=== PATIENT | female | born 1995 | race Caucasian/White ===

== ENCOUNTER 2021-08-21 15:57 | Outpatient (CLI) | payer MEDICAID, SELFPAY ==
[2021-08-21 16:51] LABS: Absolute Lymphocyte Count 1.82 X10^3/uL (0.83-4.51); Absolute Neutrophil Count 4.5 X10^3/uL (2.0-7.7); Basophil# 0.07 X10^3/uL; Basophil% 0.9 % (0-1); Eosinophil# 0.13 X10^3/uL; Eosinophils% 1.8 % (0-5); Hematocrit 34.1 % (37-47); Hemoglobin 10.2 g/dL (12.0-15.0); Lymphocyte # 1.82 X10^3/ul (0.83-4.51); Lymphocyte % 24.5 % (19-41); Mean Corp Hgb Conc 29.9 g/dL (32-36); Mean Corpuscular Hgb 24.2 pg (27.0-32.0); Mean Platelet Vol. 11.3 fl (6.2-12.0); Monocyte# 0.87 X10^3/uL; Monocyte% 11.7 % (0-10); NRBC Flagged by Analyzer 0 % (0-5); Neutrophil # 4.49 X10^3/uL (2.7-7.7); Neutrophil % 60.6 % (47-70); Platelet Count 369 K/mm3 (150-450); Red Blood Count 4.21 M/mm3 (4.2-5.4); White Blood Count 7.4 K/mm3 (4.4-11.0)
[2021-08-21 17:16] LABS: ALB/GLOB Ratio 0.9 RATIO (0.9-2.4); AST(SGOT) 28 U/L (15-37); Alanine Aminotransfer ALT/SGPT 54 U/L (13-56); Albumin, Serum 3.6 g/dL (3.2-5.0); Alkaline Phosphatase 105 U/L (45-117); Anion Gap 6 (5-15); BUN 9 mg/dL (7-18); BUN/Creat Ratio 12.9 RATIO (10-20); Chloride 108 mmol/L (98-107); Cholesterol 183 mg/dL (200); EST Glomerular Filtration Rate 107 mL/min (>60); Est Glom Filt Rate - Afr Amer 129 mL/min (>60); Globulin 3.9 g/dL (2.2-4.2); Glucose 81 mg/dL (74-106); High Density Lipoprotein 54 mg/dL; Protein, Total 7.5 g/dL (6.4-8.2); Sodium Level 139 mmol/L (136-145); T4 Free Direct 1.23 ng/dL (0.76-1.46); Thyroid Stim Hormone (TSH) 0.01 uIU/mL (0.358-3.74); Triglycerides 163 mg/dL; Very Low Density Lipoprotein 33 mg/dL (5-40)
[2021-08-24 16:04] LABS: Ferritin 4 ng/mL (8-252); Iron 17 ug/dL (50-170); Iron Binding Capacity,Total 479 ug/dL (250-450); PERCENT IRON SATURATION 3.5 % (15.0-55.0)
== END 2021-08-21 23:59 | disposition short-term general hospital (02) ==
LOC: BIMLAB 16:01
PROVIDERS: PCP Nurse Practitioner Family; Referring Provider Nurse Practitioner Family; Visit Provider Nurse Practitioner Family
DX: Z00.00 Encounter for general adult medical examination without abnormal findings (principal); G43.909 Migraine, unspecified, not intractable, without status migrainosus; E03.9 Hypothyroidism, unspecified; D50.9 Iron deficiency anemia, unspecified; F41.9 Anxiety disorder, unspecified
CPT/HCPCS: 36415; 80053; 80061; 82728; 83540; 83550; 84439; 84443; 85025

== ENCOUNTER → 2021-12-04 | Outpatient (CLI) | payer MEDICAID, SELFPAY ==
[2021-12-04 16:49] LABS: Absolute Lymphocyte Count 2.45 X10^3/uL (0.83-4.51); Absolute Neutrophil Count 4.4 X10^3/uL (2.0-7.7); Basophil# 0.11 X10^3/uL; Basophil% 1.4 % (0-1); Eosinophil# 0.12 X10^3/uL; Eosinophils% 1.5 % (0-5); Hematocrit 37.5 % (37-47); Hemoglobin 11.5 g/dL (12.0-15.0); Lymphocyte # 2.45 X10^3/ul (0.83-4.51); Mean Corp Hgb Conc 30.7 g/dL (32-36); Mean Corpuscular Hgb 25.2 pg (27.0-32.0); Mean Corpuscular Volume 82.2 fL (81-99); Mean Platelet Vol. 10.8 fl (6.2-12.0); Monocyte# 0.82 X10^3/uL; Monocyte% 10.4 % (0-10); NRBC Flagged by Analyzer 0 % (0-5); Neutrophil # 4.35 X10^3/uL (2.7-7.7); Neutrophil % 55.1 % (47-70); Platelet Count 360 K/mm3 (150-450); RBC Distribution Width CV 18.6 % (11.6-14.6); RBC Distribution Width SD 55.7 fl (35.1-43.9); Red Blood Count 4.56 M/mm3 (4.2-5.4); White Blood Count 7.9 K/mm3 (4.4-11.0)
[2021-12-04 17:26] LABS: Anion Gap 5 (5-15); BUN 12 mg/dL (7-18); BUN/Creat Ratio 11.9 RATIO (10-20); Calcium,Total 8.5 mg/dL (8.5-10.1); Chloride 104 mmol/L (98-107); Creatinine, Serum 1.01 mg/dL (0.55-1.02); EST Glomerular Filtration Rate 69 mL/min (>60); Est Glom Filt Rate - Afr Amer 84 mL/min (>60); Glucose 85 mg/dL (74-106); Sodium Level 138 mmol/L (136-145); Thyroid Stim Hormone (TSH) 9.92 uIU/mL (0.358-3.74)
== END | disposition home or self-care (01) ==
LOC: BIMLAB 16:09
PROVIDERS: PCP Nurse Practitioner Family; Referring Provider Nurse Practitioner Family; Visit Provider Nurse Practitioner Family
DX: E03.9 Hypothyroidism, unspecified (principal); F41.9 Anxiety disorder, unspecified; G43.909 Migraine, unspecified, not intractable, without status migrainosus
CPT/HCPCS: 36415; 80048; 84443; 85025

== ENCOUNTER → 2022-01-13 | Outpatient (CLI) | payer MEDICAID, SELFPAY ==
[2022-01-13 17:20] LABS: Vitamin B12 368 pg/mL (211-911); Vitamin D,25 Hydroxy 26.7 ng/mL
[2022-01-13 23:24] LABS: Ferritin 17 ng/mL (8-252); Iron 36 ug/dL (50-170); Iron Binding Capacity,Total 414 ug/dL (250-450); PERCENT IRON SATURATION 8.7 % (15.0-55.0); Thyroid Stim Hormone (TSH) 4.99 uIU/mL (0.358-3.74)
[2022-01-14 09:55] LABS: Hematocrit 40.6 % (37-47); Hemoglobin 12.7 g/dL (12.0-15.0); Mean Corp Hgb Conc 31.3 g/dL (32-36); Mean Corpuscular Hgb 27.4 pg (27.0-32.0); Mean Corpuscular Volume 87.7 fL (81-99); Mean Platelet Vol. 11.8 fl (6.2-12.0); Platelet Count 322 K/mm3 (150-450); RBC Distribution Width CV 15.3 % (11.6-14.6); RBC Distribution Width SD 48.6 fl (35.1-43.9); Red Blood Count 4.63 M/mm3 (4.2-5.4)
== END | disposition home or self-care (01) ==
LOC: BIMLAB 16:18
PROVIDERS: PCP Nurse Practitioner Family; Referring Provider Nurse Practitioner Family; Visit Provider Nurse Practitioner Family
DX: D64.9 Anemia, unspecified (principal); F32.A Depression, unspecified; G43.909 Migraine, unspecified, not intractable, without status migrainosus; E03.9 Hypothyroidism, unspecified; F41.9 Anxiety disorder, unspecified; E56.9 Vitamin deficiency, unspecified
CPT/HCPCS: 36415; 82306; 82607; 82728; 83540; 83550; 84443; 85027

== ENCOUNTER → 2022-05-25 | Outpatient (CLI) | payer MEDICAID, SELFPAY ==
[2022-05-25 15:53] LABS: Thyroid Stim Hormone (TSH) 3.91 uIU/mL (0.358-3.74)
== END | disposition home or self-care (01) ==
LOC: BIMLAB 13:03
PROVIDERS: Physician Assistant; PCP Nurse Practitioner Family; Visit Provider Nurse Practitioner Family
DX: E03.9 Hypothyroidism, unspecified (principal)
CPT/HCPCS: 36415; 84443

== ENCOUNTER 2022-06-02 08:00 | Outpatient (RCR) | payer MEDICAID, SELFPAY ==
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
[2022-06-02 11:57] VITALS: BP 116/85; PULSE 62
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
--- NOTE | 2022-06-02 13:02 | BH.DR.ITP ---
Initial Treatment Plan Patient Information Visit Information: ADMISSION DATE: EXPECTED LOS: 4-6 weeks Problems/Symptoms Problem #1:: Mood instability Symptom:: Sadness, hopelessness, worthlessness, guilt, passive thoughts of , fleeting, passive suicidal ideation, anhedonia, low motivation, Problem #2:: Anxiety Symptom:: Worry, rumination, panic attacks, avoidance
--- NOTE | 2022-06-04 09:10 | BH.SGPN.GN ---
Behaviors/Verbalizations/Mental Status: [] Eye contact is poor. Motor activity is appropriate. Appearance is casual. Speech is Appropriate. Mood is depressed. Affect is flat. Thoughts are linear and logical. No evidence of psychosis. Reviewed daily check in sheet and no reports of suicidal ideations or intent. Client Response/Progress/Benefit: [] Pt participated at times during the group discussions. Attentive. Daily symptom tracker noted 2/5 for anxiety, depression,and irritability;ity which is improvement from earlier in the week. Mental health wins included feeling less irritable and more connected with her family. Shared struggles with connection due in large part to Depression. Daily tasks and responsibilities are reported to be easier with mood improvement. Increased energy and improved communication this week as well. I'm also feeling good healthwise She could not identify any skills or significant changes that she has utilized to cause these changes. Benefited from group support, encouragement, and feedback. Will continue in group to prevent decompensation, maintain safety, and increase healthy coping. Narrative Note: []
--- NOTE | 2022-06-04 10:08 | BH.SGPN.GN ---
Behaviors/Verbalizations/Mental Status: []Pt alert and oriented, casually dressed and appropriately groomed. Eye contact good. Motor activity appropriate. Speech within normal limits. Affect constricted, mood depressed and anxious. Thoughts linear, logical, no signs of hallucinations or delusions. Client Response/Progress/Benefit: []Pt was an engaged participant AEB listening to others, and taking notes. Did well to remain on topic. Participated in interactive group discussion on internal and external barriers to mental health progress. Pt described current reality as feeling stuck in between two mountains with her supports on the other side where she cannot reach them. Reported desired reality is no longer being trapped and being able to use her own skills to scale the mountain herself while also seeing her supports are available when needing them. Client shared personal barriers to desired realty include: deconstruction of fidel, negative self-talk, and lack of support. Benefited from increased awareness of current barriers to progress as well as current/desired realities. Pt will continue IOP tx to reduce anxiety and improve self-esteem, increase consistent use of healthy coping, and prevent decompensation. Narrative Note: []
--- NOTE | 2022-06-04 11:10 | BH.SGPN.GN ---
Behaviors/Verbalizations/Mental Status: []Pt alert and oriented, neatly dressed and groomed. Eye contact good. Motor activity appropriate. Speech within normal limits. Affect constricted, mood dysthymic. Thoughts linear, logical, no signs of hallucinations or delusions. Client Response/Progress/Benefit: []Pt engaged during activity, encouraging peers, and contributed as group brainstormed ideas on how to cope with internal barriers that keep pts stuck from moving towards goals. Able to identify barriers to desired reality. Identified barriers to current reality to include lack of self-confidence, and needing confirmation bias from supports, and poor boundaries. Pt wants to work on overcoming the barrier of poor boundaries by reducing how much she is on social media and reducing what she shares. Benefited from group by identifying obstacles and solutions to desired reality.? Pt will continue IOP tx to prevent decompensation, improve daily functioning, and increase healthy coping skills. ? Narrative Note: []
--- NOTE | 2022-06-07 14:17 | BH.MDN ---
Multi-Disciplinary Note - Note 45-min Individual Time Started:: 12:00 Date: 06/07/22 Purpose of session/treatment goals addressed:: Purpose session was to identify current symptoms and stressors, gather background information, and identify treatment goals. Eye Contact:: Fair Motor Activity:: Appropriate Appearance:: Casual Speech:: Appropriate Mood:: Anxious, Depressed Affect:: Constricted Thoughts:: Linear, Logical, No evidence of hallucinations/delusions noted Staff Interventions:: psychoeducation on: - Cognitive triangle And behavioral activation, CBT techniques, rapport building, strengths perspective, treatment planning Client Response:: Client shared she moved to [place] little over a year ago which has been a significant change in impacting her mental health. Client stated they moved here when she was 7 months . Client reported since being with her they have moved 3 of different times which added stress each time the move. Client stated they chose to move here because they wanted to be closer to support but since being here realizes it has not really helped with support. Client reported her 's brother lives less than 30 minutes away but they do not really see them very often. Client reported her depression has been at the forefront. Client stated her depression is impacting her ability to function in her home. Reported she feels like her is doing more around the house that he should since she does not work right now. Client stated she struggles with taking the kids outside the house because of her anxiety. Client reported no motivation, apathy, anhedonia, and no energy. Client reported her mood fluctuates within the same day in which she will feel motivated and improved energy in a couple hours and will go back to feeling depressed and not wanting to do anything. Client stated while she is in IOP she would like to learn how to manage her anger more effectively, when how to get out of her head with racing thoughts and negative thought patterns. In discussion about self care, reported she does not feel like she has things that she enjoys anymore. 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 Risks/Concerns:: Client reports passive thoughts of , denies active suicidal ideation, plan, or intent. Client feels able to maintain safety. Progress Toward Goals/Plan:: No progress observed to given client just started IOP. Client struggling with depressed symptoms, anxious symptoms, and home functioning is significantly impacted due to her mental health. 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 Also client's mental health has kept her from attempting to socialize and meet new friends. Client to continue IOP to improve daily functioning, increase healthy coping skills, and prevent decompensation. Time Stopped:: 12:45
--- NOTE | 2022-06-11 09:10 | BH.SGPN.GN ---
Behaviors/Verbalizations/Mental Status: [] Eye contact is good. Motor activity is appropriate. Appearance is casual. Speech is Appropriate. Mood is depressed. Affect is congruent. Thoughts are linear and logical. No evidence of psychosis. Reviewed daily check in sheet and pt reports 1/5 for suicidal thoughts and 0/5 for intent. Client Response/Progress/Benefit: [] Pt participated at times during group discussions. She was very helpful feedback to peer struggling with body image issues. ?Attentive during video and discussion on education on CBT. Daily symptom tracker notes 3/5 for depression and anger. SI-1. Mental health win was that she made it to group today. States ?I was a mess all week?. Reports significant stress which is mainly related to caring for her children. ?Life is stressful?. She chooses not to elaborate on her struggles any further. Group was supportive and empathetic which was beneficial. Will continue in IOP to prevent decompensation, maintain safety, and increase healthy coping skills. Narrative Note: []
--- NOTE | 2022-06-11 10:15 | BH.SGPN.GN ---
Behaviors/Verbalizations/Mental Status: [] Client alert and oriented, casually dressed and groomed. Eye contact good. Motor activity appropriate. Speech within normal limits. Affect congruent, mood euthymic. Thoughts linear, logical, no signs of hallucinations or delusions. Client Response/Progress/Benefit: [] Client was an active participant AEB contributing to discussion, taking notes, and engaging in group activity. Connected with the topic of pitfalls and listened to group discussion on barriers that prevent from choosing a healthier path to mental wellness. Group worked together to identify examples of personal pitfalls which included; anger, shutting down, drug use, unhealthy coping, denial, distortions, and self sabotage. Client identified all or nothing thinking as a personal pitfall that have inhibited progress in the past. Client benefited from group as client learned to better identify potential barriers to improving mental health symptoms. Client will continue IOP tx to increase self-care, gain healthy support, and improve daily functioning. Narrative Note: []
--- NOTE | 2022-06-11 11:15 | BH.SGPN.GN ---
Behaviors/Verbalizations/Mental Status: [] Client alert and oriented, casually dressed and groomed. Eye contact good. Motor activity appropriate. Speech within normal limits. Affect congruent, mood euthymic. Thoughts linear, logical, no signs of hallucinations or delusions. Client Response/Progress/Benefit: [] Client receptive of session, engaged throughout AEB client actively listening and at times contributing to discussion as well as taking notes. Client participated in the experiential activity and did well to communicate ideas with peers and manage emotions. Client attentive as group processed how the emotions and perspective of the group impacted the activity. Group worked together to identify different coping skills to help manage pitfalls. Client identified pitfall they struggle with is all or nothing thinking. Client plans to work on this pitfall by setting attainable goals with not setting herself up for failure. Benefited from identifying personal pitfalls and strategies to overcome these pitfalls. Will continue IOP tx to increase self worth, combat negative thinking patterns, and increase the use of healthy coping skills. Narrative Note: []
--- NOTE | 2022-06-16 10:10 | BH.SGPN.GN ---
Behaviors/Verbalizations/Mental Status: [] Eye contact is good. Motor activity is appropriate. Appearance is casual. Speech is Appropriate. Mood is anxious. Affect is congruent. Thoughts are linear and logical. No evidence of psychosis. Client Response/Progress/Benefit: [] Pt participated at times during the group discussions and activities. Attentive during psychoeducation. Participated during interactive group discussions on defining stress, benefits of stress, and how they respond when feeling overwhelmed with stress. Pt identified main stressors in life as going to the store, her mental health, kids, family, relationship, and /loss. When her jar is overflowing it leads to taking naps, checking out, and isolating. Benefited from increased understanding of stressors and how they can impact mental health. Will continue in IOP to maintain safety, prevent decompensation, and increase healthy coping. Narrative Note: []
--- NOTE | 2022-06-16 11:10 | BH.SGPN.GN ---
Behaviors/Verbalizations/Mental Status: []Pt alert and oriented, neatly dressed and groomed. Eye contact good. Motor activity appropriate. Speech within normal limits. Affect constricted, mood anxious. Thoughts linear, logical, no signs of hallucinations or delusions. Client Response/Progress/Benefit: []Pt participated at times during group discussions. Attentive during psychoeducation. Participated in experiential activity in which group members had to utilize stress management skills in the moment. Pt agreed with peers that their cooperation and communication was a helpful resource and pt worked well with peers to problem-solve the stressors presented. Pt engaged in review of the 4 A?s and picked wanting to work on adapting her expectations for herself. Pt shared she often sets unrealistic goals and then ?shoulds? on herself when she does not reach these. Benefited from processing in the moment stress management strategies and identifying new ways to cope with stress. Will continue in IOP tx to prevent decompensation, reduce negative thinking patterns, and improve overall functioning. ? Narrative Note: []
--- NOTE | 2022-06-16 11:47 | PCM.BH.PN ---
Progress Note Progress Note: History of Present Illness/Interim History: The patient is a 26-year-old female who has depression, anxiety, possible bipolar disorder and hypothyroidism who is seen in follow-up at the [facility] behavioral health IOP program. I last saw the patient over 1 month ago as the patient has some attendance issues secondary to lack of childcare availability. Patient at times struggles to engage in the groups and the program. The patient states that the groups make her anxious sometimes because her prior job was very stressful and the patient's reminder of her clients and her prior job. The patient at last visit did not wish to have any medication changes but did agree to try taking her Lexapro 10 mg consistently as she was not taking it much before. She states that she has taken it every day since her last visit and she feels more stable and somewhat less depressed. She still has occasional hopelessness but it is less intense and less often than before. She still has some trouble taking care of her children and doing her activities of daily living. She is not having any crying episodes anymore. She has minimal times where she has feelings of worthlessness. She feels she is learning some skills that will help her to manage her mental health issues. Patient is still somewhat anhedonic and not enjoying much that she does except occasional moments being with her children. She still has low energy level and is a worrier and ruminates negatively. She admits to occasional passive thoughts of but less than a few times a week now.. She denies any suicidal ideation, homicidal ideation, hallucinations, delusions or symptoms of sweta. She still has considerable financial stress and they are still considering moving back to [place] to be closer to support and babysitting they can trust in case the patient returns to work later. Current Psychiatric Medications: [] Lexapro 10 mg p.o. daily (taking it consistently for 6 weeks now) Mental Status Examination: [] The patient is an obese female who appears normal for stated age and is casually dressed and groomed with good hygiene. She is ambulatory with a normal gait and has no psychomotor agitation or retardation. Eye contact is good and speech is normal rate and rhythm and fluent with no pressure. Mood is depressed. Affect is constricted. Thought process is goal-directed and organized. Thought content there is evidence of occasional passive thoughts of . There is no evidence of suicidal ideation, plan for suicide, homicidal ideation, hallucinations, delusions or symptoms of sweta. Reality testing is intact. Intelligence is average. Judgment is intact. Insight is fair and improving. Diagnoses: [] 1. Rule out bipolar 2 disorder 2. Major depressive disorder, recurrent, severe without psychosis 3. Generalized anxiety disorder 4. Recently diagnosed hypothyroidism and thyroid medication change which could affect mood instability 5. Cluster B traits 6. Primary support, housing and financial issues Plan: [] The patient will continue the IOP program at [facility] as the structure, support, education and group therapy will hopefully prevent worsening of the patient's symptoms which could require hospitalization. The patient felt safe during the interview and if it anytime she does not feel safe she will let us know or go to the emergency room. The risks, options, possible complications and side effects of the medications were discussed with the patient and she understands and accepts these. The patient still refuses any increase in medication dose or adding any medications. She does not want any more weight gain and she wants to wait several months till she feels her thyroid disorder has stabilized on the new dose of medication. Patient will continue to follow-up with her outpatient private providers and I will see the patient in follow-up while she is in the IOP program.
== END 2022-06-30 23:59 ==
LOC: BHIOP 08:00
PROVIDERS: PCP Nurse Practitioner Family; Referring Provider Psychiatry & Neurology Psychiatry; Visit Provider Psychiatry & Neurology Psychiatry
DX: F33.2 Major depressive disorder, recurrent severe without psychotic features (principal); F41.1 Generalized anxiety disorder; E03.9 Hypothyroidism, unspecified; Z79.899 Other long term (current) drug therapy
CPT/HCPCS: 90792; 99213; H2020; S9480; 90834

== ENCOUNTER → 2022-12-01 | Outpatient (CLI) | payer MEDICAID, SELFPAY ==
[2022-12-01 16:45] LABS: Mucous, Urine 0 SEEN /hpf (<or=2+); Squamous Epithelial Cells - UA 0 SEEN /hpf (5-10)
[2022-12-01 17:11] LABS: Color, Urine Yellow (Yellow); Glucose, Dipstick Normal (Normal); Ketone-Dipstick Negative (Negative); Leukocyte Esterase-Dipstick 500 /ul (Negative); Nitrite-Dipstick Negative (Negative); Occult Blood-Urine 25 /ul (Negative); Protein-Dipstick Negative (Negative); Urine Bilirubin Dipstick Negative (Negative); Urine Clarity Clear (Clear); Urine Urobilinogen Normal (Normal)
[2022-12-01 17:24] LABS: White Blood Cells 10-25 SEEN /hpf (0-5)
[2022-12-01 17:25] LABS: Bacteria RARE /hpf (None Seen); Red Blood Cells-Urine 0-5 SEEN /hpf (0-5)
== END | disposition home or self-care (01) ==
PROVIDERS: PCP Nurse Practitioner Family; Referring Provider Physician Assistant; Visit Provider Physician Assistant
DX: R30.0 Dysuria (principal)
CPT/HCPCS: 81001; 87086; 87088

== ENCOUNTER → 2022-12-14 | Outpatient (CLI) | payer MEDICAID, SELFPAY ==
[2022-12-14 10:46] LABS: Bacteria 0 SEEN /hpf (None Seen); Mucous, Urine 0 SEEN /hpf (<or=2+); Red Blood Cells-Urine 0 SEEN /hpf (0-5); White Blood Cells 0 SEEN /hpf (0-5)
[2022-12-14 11:09] LABS: Color, Urine Yellow (Yellow); Glucose, Dipstick Normal (Normal); Ketone-Dipstick 15 mg/dl (Negative); Leukocyte Esterase-Dipstick Negative /ul (Negative); Nitrite-Dipstick Negative (Negative); Occult Blood-Urine Negative /ul (Negative); Protein-Dipstick Negative (Negative); Urine Bilirubin Dipstick Negative (Negative); Urine Clarity Clear (Clear); Urine Urobilinogen Normal (Normal)
[2022-12-14 11:48] LABS: Squamous Epithelial Cells - UA 0-5 SEEN /hpf (5-10)
== END | disposition home or self-care (01) ==
LOC: LABSPEC 10:39
PROVIDERS: PCP Nurse Practitioner Family; Referring Provider Physician Assistant Surgical; Visit Provider Physician Assistant Surgical
DX: R30.0 Dysuria (principal)
CPT/HCPCS: 81001; 87086; 87088

== ENCOUNTER → 2022-12-29 | Outpatient (CLI) | payer MEDICAID, SELFPAY ==
[2022-12-29 16:50] LABS: Absolute Lymphocyte Count 1.88 X10^3/uL (0.83-4.51); Absolute Neutrophil Count 3.4 X10^3/uL (2.0-7.7); Basophil# 0.07 X10^3/uL; Basophil% 1.2 % (0-1); Eosinophil# 0.12 X10^3/uL; Hematocrit 39.3 % (37-47); Hemoglobin 12.7 g/dL (12.0-15.0); Lymphocyte # 1.88 X10^3/ul (0.83-4.51); Mean Corp Hgb Conc 32.3 g/dL (32-36); Mean Corpuscular Hgb 28.8 pg (27.0-32.0); Mean Corpuscular Volume 89.1 fL (81-99); Mean Platelet Vol. 11.9 fl (6.2-12.0); Monocyte# 0.57 X10^3/uL; Monocyte% 9.4 % (0-10); NRBC Flagged by Analyzer 0 % (0-5); Neutrophil # 3.41 X10^3/uL (2.7-7.7); Neutrophil % 56.1 % (47-70); Platelet Count 282 K/mm3 (150-450); RBC Distribution Width CV 13.1 % (11.6-14.6); RBC Distribution Width SD 42.8 fl (35.1-43.9); Red Blood Count 4.41 M/mm3 (4.2-5.4); White Blood Count 6.1 K/mm3 (4.4-11.0)
[2022-12-29 17:16] LABS: Vitamin B12 517 pg/mL (211-911); Vitamin D,25 Hydroxy 58.2 ng/mL
[2022-12-29 17:22] LABS: ALB/GLOB Ratio 1.1 RATIO (0.9-2.4); AST(SGOT) 20 U/L (15-37); Alanine Aminotransfer ALT/SGPT 39 U/L (13-56); Albumin, Serum 3.9 g/dL (3.2-5.0); Alkaline Phosphatase 84 U/L (45-117); Anion Gap 8 (5-15); BUN 9 mg/dL (7-18); BUN/Creat Ratio 12.5 RATIO (10-20); Calcium,Total 8.9 mg/dL (8.5-10.1); Chloride 109 mmol/L (98-107); Creatinine, Serum 0.72 mg/dL (0.55-1.02); EST Glomerular Filtration Rate 102 mL/min (>60); Est Glom Filt Rate - Afr Amer 123 mL/min (>60); Ferritin 60 ng/mL (8-252); Globulin 3.4 g/dL (2.2-4.2); Glucose 86 mg/dL (74-106); Iron 50 ug/dL (50-170); Iron Binding Capacity,Total 285 ug/dL (250-450); PERCENT IRON SATURATION 17.5 % (15.0-55.0); Potassium 3.8 mmol/L (3.5-5.1); Protein, Total 7.3 g/dL (6.4-8.2); Sodium Level 140 mmol/L (136-145); Thyroid Stim Hormone (TSH) 2.51 uIU/mL (0.358-3.74)
== END | disposition home or self-care (01) ==
LOC: BIMLAB 15:32
PROVIDERS: PCP Nurse Practitioner Family; Visit Provider Nurse Practitioner Family
DX: E03.9 Hypothyroidism, unspecified (principal); F41.9 Anxiety disorder, unspecified; F32.A Depression, unspecified; D50.9 Iron deficiency anemia, unspecified; E56.9 Vitamin deficiency, unspecified
CPT/HCPCS: 36415; 80053; 82306; 82607; 82728; 83540; 83550; 84443; 85025

== ENCOUNTER → 2023-03-22 | Outpatient (CLI) | payer MEDICAID, SELFPAY ==
[2023-03-28 16:50] LABS: HPV Reflexed? NOT INDICATED
== END | disposition home or self-care (01) ==
LOC: LABSPEC 16:10
PROVIDERS: PCP Nurse Practitioner Family; Referring Provider Nurse Practitioner Women's Health; Visit Provider Nurse Practitioner Women's Health
DX: Z12.4 Encounter for screening for malignant neoplasm of cervix (principal)
CPT/HCPCS: 87070; 87205; 88175; G0145

== ENCOUNTER 2023-04-11 15:18 | Emergency (ER) | payer MEDICAID, SELFPAY ==
[2023-04-11 15:19] VITALS: BP 117/69; PULSE 95; RESP 18; TEMP 35.9; O2SAT 100; BMI 28.9
--- NOTE | 2023-04-11 16:44 | EDS_ITS ---
HPI History of Present Illness Chief Complaint: Abd Pain Informant: patient Onset/Context/Timing Onset: Today Narrative Narrative: Patient presents secondary to epigastric abdominal pain that radiated through to her back. Patient had gastric sleeve surgery performed in September of this year in [place]. Patient states she had a migraine earlier today. When her sumatriptan did not help, she did take 2 tabs of Excedrin. She states she knows that she is not was to take aspirin after her gastric sleeve surgery. Shortly after this she developed severe epigastric pain rating through to her back. She had nausea but no vomiting. After taking some omeprazole symptoms have improved, however she wanted to be checked to be sure everything was okay. She does have an IUD and does not believe she is . [facility] Medical History Anemia Generalized anxiety disorder History of depression Hypothyroidism Major depressive disorder, recurrent, severe w/o psychotic behavior Skin lesion Thyroid disease Urinary tract infection with hematuria Vitamin deficiency Home Medications copper 380 square mm intrauterine device (ParaGard T 380A) 1 device intrauterine ONCE 12/16/21 [History Last Taken Unknown] multivitamin (One Daily Multivitamin tablet) 1 tab PO DAILY 12/01/22 [History Last Taken Unknown] sumatriptan succinate 100 mg tablet See Rx Instructions PO .COMPLEX #14 tabs 01/18/23 [Rx Last Taken Unknown] magnesium oxide 500 mg capsule 500 mg PO DAILY 03/22/23 [History Last Taken Unknown] Allergy/AdvReac Type Severity Reaction Status Date / Time No Known Allergies Allergy Verified 04/11/23 15:20 Family History Other Cancer Hypertension Melanoma Surgical History H/O gastric sleeve S/P appendectomy Social History household members: spouse and children number of children: 2 current occupation: [employer] pets and animals: Yes (2) pets and animals: cat(s) Smoking Status: Never smoker alcohol intake: current alcohol intake frequency: holidays/special occasions only substance use type: does not use what type of physical activity do you participate in: walking and weight training frequency: 3-4 times per week seatbelt use: always do you feel safe at home: Yes additional social history: - Jose E ROS ROS ED Constitutional Constitutional ED: Denies chills or fever(s) Eyes Eyes: Denies discharge from eye(s) ENT ENT ED: Denies discharge from eye(s), rhinorrhea or sore throat Cardiovascular Cardiovascular: Denies chest pain or palpitations Respiratory/Chest Respiratory/Chest: Denies cough or dyspnea Gastrointestinal Gastrointestinal: Reports abdominal pain and nausea; Denies diarrhea or vomiting Musculoskeletal Musculoskeletal: Denies back pain or extremity pain Integumentary Denies Abrasions or rash Neurologic Neurologic: Reports headache(s); Denies weakness Psychiatric Psychiatric: Denies anxiety or depression Allergic/Immunologic Allergic/Immunologic ED: Denies lip swelling or urticaria EXAM Physical Exam Const Vital Signs: 04/11/23 15:19 Temperature 96.6 F L Temperature Source Temporal Pulse Rate 95 Respiratory Rate 18 Blood Pressure 117/69 Blood Pressure Mean 85 Pulse Ox 100 Oxygen Delivery Method Room Air Positive well nourished and well developed General Appearance ED: well developed HEENT Reports normocephalic and head/scalp atraumatic Eyes PERRL and EOMs intact bilaterally Neck supple Chest Wall inspection of chest normal and palpation of chest normal Resp normal respiratory effort and clear to auscultation bilaterally Cardio regular rate and regular rhythm GI GI Narrative: Mild epigastric tenderness. No guarding or rebound. Hypoactive but present bowel sounds are noted. Palpation: soft Extremity normal to inspection Neuro oriented x3 and no sensory deficits noted Sensorium / Orientation: alert Motor Exam: strength 5/5 throughout Psych mental status grossly normal Skin no rashes or lesions noted MDM MDM MDM Narrative Medical decision making narrative: IV line established. Patient given IV fluids. Labwork obtained to evaluate for leukocytosis, anemia, and electrolyte derangement. Acute abdominal series obtained to evaluate bowel gas pattern for possible obstruction versus perforation. Lab Data Attestation: I reviewed the patient's lab results. Labs: Laboratory Results - last 24 hr 04/11/23 17:10 WBC 9.4 RBC 4.83 Hgb 13.9 Hct 43.5 MCV 90.1 MCH 28.8 MCHC 32.0 RDW Std Deviation 41.9 RDW Coeff of Luis Fernando 12.7 Plt Count 308 MPV 11.0 Immature Gran % (Auto) 0.600 Neut % (Auto) 74.8 H Lymph % (Auto) 16.9 L [place] % (Auto) 6.7 Eos % (Auto) 0.4 Baso % (Auto) 0.6 Absolute Neuts (auto) 7.1 Absolute Lymphs (auto) 1.60 Nucleated RBC % 0 Sodium 142 Potassium 3.7 Chloride 107 Carbon Dioxide 27.0 Anion Gap 8 BUN 10 Creatinine 0.80 Estim Creat Clear Calc 82.06 Est GFR (MDRD) Af Amer 108 Est GFR (MDRD) Non-Af 89 BUN/Creatinine Ratio 12.4 Glucose 83 Calcium 9.0 Total Bilirubin 0.20 Direct Bilirubin 0.10 AST 46 H ALT 27 Alkaline Phosphatase 83 Total Protein 7.5 Albumin 3.8 Globulin 3.7 Lipase 21 Serum , Qual NEGATIVE Radiography Diagnostic Testing: Clinical Impression(s) from Imaging Studies Acute Abdomen Series 04/11/23 17:15 IMPRESSION: No acute cardiopulmonary disease. Nonspecific gas pattern with no signs of bowel obstruction or free air. Electronically Signed: Tanna Crowe MD at 17:33 EDT , Treatment and Re-Evaluation :: Acute abdominal series per my interpretation feels no evidence of obstruction or free air. Radiology interpretation is reviewed and agrees. CBC is unremarkable. Chemistry studies are normal as well as LFTs and lipase. test is negative. On repeat evaluation patient is resting comfortably. She is reassured with her findings. She will be discharged home. Discharge Plan Triage Chief Complaint: Abd Pain ED Provider: Johanna Carmona Dx/Rx/DC Orders Clinical Impression: Acute epigastric pain Instructions: ED Epigastric Pain Uncertain Cause Prescriptions: No Action ParaGard T 380A 380 square mm intrauterine device 1 device intrauterine ONCE Rx Instructions: as a single dose multivitamin [One Daily Multivitamin] Tablet 1 tab PO DAILY magnesium oxide 500 mg capsule 500 mg PO DAILY sumatriptan succinate 100 mg tablet See Rx Instructions PO .COMPLEX Qty: 14 1RF Rx Instructions: take 1 tab at onset of headache; if no relief, may repeat 1 tab after at least 2 hrs; max = 2 tabs/24 hrs PO Primary Care Provider: Antoni Schneider NP Referrals: Antoni Schneider MULTIPLEX OPERATOR, MULTIPLEX OPERATOR-C [Primary Care Provider] - As Needed Disposition Disposition: Home, Self Care
[2023-04-11] MEDS: 0.9% Normal Saline (1000mL) 1,000 ML 150 ML IV (17:11)
--- NOTE | 2023-04-11 17:15 | RAD_ITS ---
STUDY: X-RAY - ACUTE ABDOMINAL SERIES REASON FOR EXAM: Female, 27 years old. pain TECHNIQUE: Single view of the chest. Supine, and erect view(s) of the abdomen were obtained. COMPARISON: None. FINDINGS: The lungs are clear and expanded. Normal size heart. Normal mediastinum and stuart. Normal visualized pulmonary arteries. Normal visualized aortic arch and descending thoracic aorta. There is a non-specific bowel gas pattern. Postoperative changes with sutures and clips along the left upper quadrant. There is an IUD in place. Mild scoliosis of the lumbar spine with convexity to the left. Mild scoliosis of the thoracic spine with convexity to the right. RAD/Acute Abdomen Inc Chest IMPRESSION: No acute cardiopulmonary disease. Nonspecific gas pattern with no signs of bowel obstruction or free air. Electronically Signed: Tanna Crowe MD at 17:33 EDT ,
[2023-04-11 17:43] LABS: Absolute Neutrophil Count 7.1 X10^3/uL (2.0-7.7); Basophil# 0.06 X10^3/uL; Basophil% 0.6 % (0-1); Eosinophil# 0.04 X10^3/uL; Eosinophils% 0.4 % (0-5); Hematocrit 43.5 % (37-47); Hemoglobin 13.9 g/dL (12.0-15.0); Lymphocyte % 16.9 % (19-41); Mean Corpuscular Hgb 28.8 pg (27.0-32.0); Mean Corpuscular Volume 90.1 fL (81-99); Monocyte# 0.63 X10^3/uL; Monocyte% 6.7 % (0-10); NRBC Flagged by Analyzer 0 % (0-5); Neutrophil # 7.05 X10^3/uL (2.7-7.7); Neutrophil % 74.8 % (47-70); Platelet Count 308 K/mm3 (150-450); RBC Distribution Width CV 12.7 % (11.6-14.6); RBC Distribution Width SD 41.9 fl (35.1-43.9); Red Blood Count 4.83 M/mm3 (4.2-5.4); White Blood Count 9.4 K/mm3 (4.4-11.0)
[2023-04-11 18:00] VITALS: RESP 16
[2023-04-11 18:00] LABS: Internal QC Validated? YES +Cl - CLEAR BKGD; Pregnancy, Serum, hCG Quali. NEGATIVE Negative
[2023-04-11 18:08] LABS: AST(SGOT) 46 U/L (15-37); Alanine Aminotransfer ALT/SGPT 27 U/L (13-56); Albumin, Serum 3.8 g/dL (3.2-5.0); Alkaline Phosphatase 83 U/L (45-117); Anion Gap 8 (5-15); BUN 10 mg/dL (7-18); BUN/Creat Ratio 12.4 RATIO (10-20); Chloride 107 mmol/L (98-107); EST Glomerular Filtration Rate 89 mL/min (>60); Est Glom Filt Rate - Afr Amer 108 mL/min (>60); Estimated Creatinine Clearance 82.06 ml/min; Globulin 3.7 g/dL (2.2-4.2); Glucose 83 mg/dL (74-106); Lipase 21 U/L (13-75); Potassium 3.7 mmol/L (3.5-5.1); Protein, Total 7.5 g/dL (6.4-8.2); Sodium Level 142 mmol/L (136-145)
== END 2023-04-11 18:21 | disposition home or self-care (01) ==
PROVIDERS: Emergency Provider Emergency Medicine; PCP Nurse Practitioner Family; Visit Provider Emergency Medicine
DX: R10.13 Epigastric pain (principal)
CPT/HCPCS: 74022; 80048; 80076; 83690; 84703; 85025; 96360; 96361; 99283; J7030; A4216

== ENCOUNTER 2023-05-26 15:09 | Emergency (ER) | payer MEDICAID, SELFPAY ==
[2023-05-26 15:12] VITALS: BP 116/80; PULSE 92; RESP 18; TEMP 35.9; O2SAT 98; BMI 26.5
--- NOTE | 2023-05-26 15:23 | ED.VIS.GI ---
HPI HPI - GI History of Present Illness Chief Complaint: Abd Pain Narrative Narrative: 27-year-old female past medical history of gastric surgery/sleeve placement in [place] 6 to 7 months ago presents with epigastric pain that she has had for the last few weeks to month. She states that she is being seen by her primary care provider, Dr. Schneider. She was placed on Carafate and Protonix for suspected ulcer disease. She does state that she is under a lot of stress recently. She complains of epigastric pain and nausea, and sometimes gets diarrhea. She denies any fevers or chills. No hematemesis, no bloody bowel movements. She states that she wants to make sure that everything is okay. No exacerbating or alleviating factors. She states she has been on the Carafate and Protonix for the last week or so with improvement of her symptoms, and is unsure if she is having anxiety attacks over this. PFSH PFSH Medical History Anemia Generalized anxiety disorder History of depression Hypothyroidism Major depressive disorder, recurrent, severe w/o psychotic behavior Skin lesion Thyroid disease Urinary tract infection with hematuria Vitamin deficiency Home Medications copper 380 square mm intrauterine device (ParaGard T 380A) 1 device intrauterine ONCE 12/16/21 [History Last Taken Unknown] multivitamin (One Daily Multivitamin tablet) 1 tab PO DAILY 12/01/22 [History Last Taken Unknown] sumatriptan succinate 100 mg tablet See Rx Instructions PO .COMPLEX #14 tabs 01/18/23 [Rx Last Taken Unknown] magnesium oxide 500 mg capsule 500 mg PO DAILY 03/22/23 [History Last Taken Unknown] Allergy/AdvReac Type Severity Reaction Status Date / Time No Known Allergies Allergy Verified 05/26/23 15:12 Family History Other Cancer Hypertension Melanoma Surgical History H/O gastric sleeve S/P appendectomy Social History household members: spouse and children number of children: 2 current occupation: [employer] pets and animals: Yes (2) pets and animals: cat(s) Smoking Status: Never smoker alcohol intake: current alcohol intake frequency: holidays/special occasions only substance use type: does not use what type of physical activity do you participate in: walking and weight training frequency: 3-4 times per week seatbelt use: always do you feel safe at home: Yes additional social history: - Jose E ROS ROS ED ROS Narrative Constitutional: No fever, no chills. HEENT: No sore throat. No neck pain. No loss of vision. No rhinorrhea. Cardiovascular: No chest pain. No palpitations. No pedal edema. Respiratory: No cough, no shortness of breath. Abdominal: Epigastric abdominal pain. Positive nausea. No vomiting. Genitourinary: No dysuria. No hematuria. Musculoskeletal: No myalgias. No arthralgias. Neurologic: No headaches. No dizziness. No lightheadedness. Skin: No rash. No change in color. Psychiatric: No depression. No anxiety. EXAM Physical Exam Narrative Exam Narrative: Afebrile. Vital signs noted. HEENT: Normocephalic. Atraumatic. PERRL, EOMI. Neck soft and supple. No point tenderness or step off. Cardiovascular: Regular rate and rhythm. No murmurs, rubs, or gallops appreciated. Respiratory: No tachypnea. Lungs clear to auscultation bilaterally. Gastrointestinal: Abdomen soft, mild tenderness to palpation epigastrium with normoactive bowel sounds. No rebound or guarding. Negative Wright sign. Neurological: Awake. Alert. Nonfocal, nonlateralizing. Skin: No rash. Normal color. No pallor. Musculoskeletal: No pedal edema. Full range of motion extremities. Const Vital Signs: 05/26/23 15:12 05/26/23 15:45 Temperature 96.7 F L Temperature Source Temporal Pulse Rate 92 Respiratory Rate 18 Respiratory Effort Normal Non-Labored Blood Pressure 116/80 Blood Pressure Mean 92 Pulse Ox 98 Oxygen Delivery Method Room Air MDM MDM MDM Narrative Medical decision making narrative: I had a lengthy discussion with the patient. In the differential is gastritis versus peptic ulcer disease. She has a gastric sleeve in place, not a Sylvain-en-Y. She was told that she will most likely need follow-up with gastroenterology to perform endoscopy. In the differential diagnosis also would be pancreatitis versus nonspecific abdominal pain, versus anxiety. She does have a nonsurgical abdomen on examination. X-rays will be obtained of the abdomen after negative test. I will also obtain a UA, CBC, and CMP, with lipase. I reviewed her laboratory work from today and she has slightly elevated white count of 11.2 which I think is nonspecific, hemoglobin normal at 12.6, hematocrit normal at 39.0, platelet count 293. CMP was reviewed and she has a glucose normal at 93 with BUN of 11 and creatinine 0.69. Sodium is normal at 141 with potassium slightly low at 3.3 which was replaced orally with 40 mEq. Serum test is negative. Urinalysis is negative for infection, I do not feel that with a negative microanalysis that she requires antibiotics at this time. Acute abdominal series and 3 views, x-rays interpreted by myself independently shows nonspecific gas pattern and no evidence of an acute process, no free air under the diaphragm. I have low suspicion for perforated ulcer. At this point in time, she is already on Carafate and Maximo acid. I feel she can be discharged to follow-up with her primary care physician and she was also referred to gastroenterology. There may be some anxiety component to this as well. She has normal vital signs, however. I feel she be discharged to follow-up. Return instructions were reviewed. Disposition is discharged home in stable condition. History & Record Review Discussion w/independent historian: Patient Additional record(s) reviewed:: Prior ED visit Lab Data Attestation: I reviewed the patient's lab results. Labs: Laboratory Results - last 24 hr 05/26/23 05/26/23 15:30 16:00 WBC 11.2 H RBC 4.48 Hgb 12.6 Hct 39.0 MCV 87.1 MCH 28.1 MCHC 32.3 RDW Std Deviation 40.2 RDW Coeff of Luis Fernando 12.7 Plt Count 293 MPV 10.7 Immature Gran % (Auto) 0.700 Neut % (Auto) 76.5 H Lymph % (Auto) 13.7 L [place] % (Auto) 8.0 Eos % (Auto) 0.4 Baso % (Auto) 0.7 Absolute Neuts (auto) 8.6 H Absolute Lymphs (auto) 1.53 Nucleated RBC % 0 Sodium 141 Potassium 3.3 L Chloride 108 H Carbon Dioxide 26.0 Anion Gap 7 BUN 11 Creatinine 0.69 Estim Creat Clear Calc 95.15 Est GFR (MDRD) Af Amer 130 Est GFR (MDRD) Non-Af 107 BUN/Creatinine Ratio 16.0 Glucose 93 Calcium 9.0 Total Bilirubin 0.40 AST 6 L ALT 18 Alkaline Phosphatase 75 Total Protein 7.4 Albumin 3.6 Globulin 3.8 Albumin/Globulin Ratio 0.9 Lipase 21 Serum , Qual NEGATIVE Urine Color Yellow Urine Clarity Clear Urine pH 7.0 Ur Specific Rankin 1.005 Urine Protein Negative Urine Glucose (UA) Normal Urine Ketones 5 H Urine Occult Blood Negative Urine Nitrite Negative Urine Bilirubin Negative Urine Urobilinogen Normal Ur Leukocyte Esterase 25 H Urine RBC 0 SEEN Urine WBC 0-5 SEEN Ur Squamous Epith Cells 0-5 SEEN Urine Bacteria 0 SEEN Urine Mucus 0 SEEN Radiography Diagnostic Testing: Clinical Impression(s) from Imaging Studies Acute Abdomen Series 05/26/23 15:40 IMPRESSION: Nonspecific examination of the chest, abdomen, and pelvis status post gastric surgery. Electronically Signed: Brenton Tong MD at 16:28 EDT Reading Location ID and State: [facility] / [place] Tel , Service support , Discharge Plan Triage Chief Complaint: Abd Pain Other Complaint: Anxiety Chest Pain ED Provider: German Vanegas Dx/Rx/DC Orders Clinical Impression: Epigastric abdominal pain, Gastroesophageal reflux disease, Hypokalemia Instructions: ED Abdominal Pain Unkn Cause Fem, ED GERD (Adult), ED Epigastric Pain Uncertain Cause Prescriptions: No Action ParaGard T 380A 380 square mm intrauterine device 1 device intrauterine ONCE Rx Instructions: as a single dose multivitamin [One Daily Multivitamin] Tablet 1 tab PO DAILY magnesium oxide 500 mg capsule 500 mg PO DAILY sumatriptan succinate 100 mg tablet See Rx Instructions PO .COMPLEX Qty: 14 1RF Rx Instructions: take 1 tab at onset of headache; if no relief, may repeat 1 tab after at least 2 hrs; max = 2 tabs/24 hrs PO Primary Care Provider: Antoni Schneider NP Referrals: Kam Celis DO [Med Staff - Active Staff] - As soon as possible Antoni Schneider NP, POOLROOM TABLE ATTENDANT-C [Primary Care Provider] - As soon as possible Disposition Disposition: Home, Self Care
[2023-05-26] MEDS: 0.9% Normal Saline (1000mL) 1,000 ML 1000 ML IV (15:38)
--- NOTE | 2023-05-26 15:40 | RAD_ITS ---
STUDY: X-RAY - ACUTE ABDOMINAL SERIES REASON FOR EXAM: Female, 27 years old. Pain TECHNIQUE: Single view of the chest. Supine, and upright view(s) of the abdomen were obtained. COMPARISON: None. FINDINGS: The lungs are clear and expanded. There is mild dextroscoliosis deformity of the thoracic spine Normal size heart. Normal mediastinum and stuart. Normal visualized pulmonary arteries. Normal visualized aortic arch and descending thoracic aorta. There is a non-specific bowel gas pattern. IUD noted within the pelvis in the midline likely within the uterus Surgical clips are seen within the left upper quadrant. Lumbar spine demonstrates mild scoliosis.. RAD/Acute Abdomen Inc Chest IMPRESSION: Nonspecific examination of the chest, abdomen, and pelvis status post gastric surgery. Electronically Signed: Brenton Tong MD at 16:28 EDT ,
[2023-05-26 15:57] LABS: Absolute Lymphocyte Count 1.53 X10^3/uL (0.83-4.51); Absolute Neutrophil Count 8.6 X10^3/uL (2.0-7.7); Basophil# 0.08 X10^3/uL; Basophil% 0.7 % (0-1); Eosinophil# 0.04 X10^3/uL; Eosinophils% 0.4 % (0-5); Hemoglobin 12.6 g/dL (12.0-15.0); Lymphocyte # 1.53 X10^3/ul (0.83-4.51); Lymphocyte % 13.7 % (19-41); Mean Corp Hgb Conc 32.3 g/dL (32-36); Mean Corpuscular Hgb 28.1 pg (27.0-32.0); Mean Corpuscular Volume 87.1 fL (81-99); Mean Platelet Vol. 10.7 fl (6.2-12.0); NRBC Flagged by Analyzer 0 % (0-5); Neutrophil # 8.56 X10^3/uL (2.7-7.7); Neutrophil % 76.5 % (47-70); Platelet Count 293 K/mm3 (150-450); RBC Distribution Width CV 12.7 % (11.6-14.6); RBC Distribution Width SD 40.2 fl (35.1-43.9); Red Blood Count 4.48 M/mm3 (4.2-5.4); White Blood Count 11.2 K/mm3 (4.4-11.0)
[2023-05-26 16:08] LABS: Bacteria 0 SEEN /hpf (None Seen); Mucous, Urine 0 SEEN /hpf (<or=2+); Red Blood Cells-Urine 0 SEEN /hpf (0-5)
[2023-05-26 16:16] LABS: Color, Urine Yellow (Yellow); Glucose, Dipstick Normal (Normal); Ketone-Dipstick 5 mg/dl (Negative); Leukocyte Esterase-Dipstick 25 /ul (Negative); Nitrite-Dipstick Negative (Negative); Occult Blood-Urine Negative /ul (Negative); Protein-Dipstick Negative (Negative); Specific Gravity, Urine 1.005 (1.002-1.030); Urine Bilirubin Dipstick Negative (Negative); Urine Clarity Clear (Clear); Urine Urobilinogen Normal (Normal)
[2023-05-26 16:21] LABS: Internal QC Validated? YES +Cl - CLEAR BKGD; Pregnancy, Serum, hCG Quali. NEGATIVE Negative
[2023-05-26 16:25] LABS: ALB/GLOB Ratio 0.9 RATIO (0.9-2.4); AST(SGOT) 6 U/L (15-37); Alanine Aminotransfer ALT/SGPT 18 U/L (13-56); Albumin, Serum 3.6 g/dL (3.2-5.0); Alkaline Phosphatase 75 U/L (45-117); Anion Gap 7 (5-15); BUN 11 mg/dL (7-18); Chloride 108 mmol/L (98-107); Creatinine, Serum 0.69 mg/dL (0.55-1.02); EST Glomerular Filtration Rate 107 mL/min (>60); Est Glom Filt Rate - Afr Amer 130 mL/min (>60); Estimated Creatinine Clearance 95.15 ml/min; Globulin 3.8 g/dL (2.2-4.2); Glucose 93 mg/dL (74-106); Lipase 21 U/L (13-75); Potassium 3.3 mmol/L (3.5-5.1); Protein, Total 7.4 g/dL (6.4-8.2); Sodium Level 141 mmol/L (136-145)
[2023-05-26 16:28] LABS: Squamous Epithelial Cells - UA 0-5 SEEN /hpf (5-10); White Blood Cells 0-5 SEEN /hpf (0-5)
[2023-05-26] MEDS: Potassium Chloride Oral Tablet 20 MEQ 40 MEQ PO (16:37)
== END 2023-05-26 16:41 | disposition home or self-care (01) ==
PROVIDERS: Emergency Provider Emergency Medicine; PCP Nurse Practitioner Family; Visit Provider Emergency Medicine
DX: K21.9 Gastro-esophageal reflux disease without esophagitis (principal); E87.6 Hypokalemia; Z98.84 Bariatric surgery status; Z90.49 Acquired absence of other specified parts of digestive tract
CPT/HCPCS: 74022; 80053; 81001; 83690; 84703; 85025; 96360; 99284; J7030; A4216

== ENCOUNTER 2023-05-27 09:06 | Emergency (ER) | payer MEDICAID, SELFPAY ==
[2023-05-27 09:06] VITALS: BP 118/78; PULSE 64; RESP 14; TEMP 36.4; O2SAT 98; BMI 26.6
--- NOTE | 2023-05-27 09:13 | EX.ED.VIS.PS ---
HPI HPI - Psych History of Present Illness Chief Complaint: Anxiety Informant: patient Onset/Context/Timing Onset: Yesterday Context: Gradual Onset Timing: Continuous Worsened by: Situational factors (Abdominal pain) Relieved by: Nothing Associated Symptoms Associated Symptoms - Psych: Positive for Depressed, Change in Eating, Change in sleeping and Suicidal Thoughts; Negative for Visual Hallucinations or Auditory Hallucinations Specific plan (suicidal thought): No specific plan Narrative Narrative: Patient presents with increasing anxiety that began yesterday. Patient states she was seen here yesterday for abdominal pain. Patient states that she had a gastric sleeve surgery several months ago. Patient states she has been having some pain in her abdomen since that time. Patient states she is on Carafate. Patient states that she has been unable to see a food preparer for this. Patient states that the epigastric pain is making her anxiety worse. Patient states she has had thoughts of suicide but denies any specific plan. Patient states I just cannot live like this. PFSH PFS Medical History Anemia Generalized anxiety disorder History of depression Hypothyroidism Major depressive disorder, recurrent, severe w/o psychotic behavior Skin lesion Thyroid disease Urinary tract infection with hematuria Vitamin deficiency Home Medications copper 380 square mm intrauterine device (ParaGard T 380A) 1 device intrauterine ONCE 12/16/21 [History Last Taken Unknown] multivitamin (One Daily Multivitamin tablet) 1 tab PO DAILY 12/01/22 [History Last Taken Unknown] sumatriptan succinate 100 mg tablet See Rx Instructions PO .COMPLEX #14 tabs 01/18/23 [Rx Last Taken Unknown] magnesium oxide 500 mg capsule 500 mg PO DAILY 03/22/23 [History Last Taken Unknown] hydroxyzine pamoate 25 mg capsule 50 mg (2 x 25 mg) PO TID PRN PRN Anxiety #30 CAPSULES 05/27/23 [Rx Last Taken Unknown] Allergy/AdvReac Type Severity Reaction Status Date / Time No Known Allergies Allergy Verified 05/27/23 09:06 Family History Other Cancer Hypertension Melanoma Surgical History H/O gastric sleeve S/P appendectomy Social History household members: spouse and children number of children: 2 current occupation: [employer] pets and animals: Yes (2) pets and animals: cat(s) Smoking Status: Never smoker alcohol intake: current alcohol intake frequency: holidays/special occasions only substance use type: does not use what type of physical activity do you participate in: walking and weight training frequency: 3-4 times per week seatbelt use: always do you feel safe at home: Yes additional social history: - Jose E ROS ROS ED Constitutional Constitutional ED: Denies chills or fever(s) Eyes Eyes: Denies blurry vision or change in vision ENT ENT ED: Denies rhinorrhea or sore throat Cardiovascular Cardiovascular: Reports chest pain; Denies palpitations Respiratory/Chest Respiratory/Chest: Denies cough or dyspnea Gastrointestinal Gastrointestinal: Reports abdominal pain and nausea; Denies vomiting Genitourinary Genitourinary ED: Denies dysuria or hematuria Musculoskeletal Musculoskeletal: Denies back pain or neck pain Integumentary Denies abscess or rash Neurologic Neurologic: Denies headache(s) or weakness Psychiatric Psychiatric: Reports anxiety and suicidal thoughts Allergic/Immunologic Allergic/Immunologic ED: Denies mouth swelling or urticaria EXAM Physical Exam Const Vital Signs: 05/27/23 09:06 Temperature 97.6 F L Temperature Source Temporal Pulse Rate 64 Respiratory Rate 14 Blood Pressure 118/78 Blood Pressure Mean 91 Pulse Ox 98 Oxygen Delivery Method Room Air Positive well nourished and well developed General Appearance ED: well developed and NAD HEENT Reports moist mucous membranes normocephalic and atraumatic Neck supple and no JVD Resp normal respiratory effort and clear to auscultation bilaterally Cardio Rate: regular rate Rhythm: regular rhythm GI non-distended GI Narrative: There is mild upper abdominal tenderness. There is no rebound or guarding noted. Palpation: soft and tender epigastric, LUQ and RUQ; Negative for guarding Neuro oriented x3, CN's II-XII intact bilaterally and no sensory deficits noted Roselle Coma Scale: document GCS findings Spontaneous Obeys Commands Oriented 15 Sensorium / Orientation: alert Motor Exam: strength 5/5 throughout Psych Appearance: grossly normal and well kempt Activity / Motor Behavior: avoids eye contact Speech: normal speech Mood & Affect: anxious and tearful Thought Process: normal thought process Thought Content: No delusion(s) and No hallucination(s) MDM MDM MDM Narrative Medical decision making narrative: Patient had labs done yesterday which were all essentially within normal limits. I do not feel repeating these are necessary today. Serum alcohol level will be obtained to assess for alcohol intoxication. Urine tox screen will be obtained to assess for substance abuse. I will discuss case with web content & social media manager to help with finding a food preparer and psychiatrist to help with her anxiety. Lab Data Attestation: I reviewed the patient's lab results. Lab results narrative: Urine tox screen was reviewed and was negative. Serum alcohol level was reviewed and was less than 3.0. Labs: Laboratory Results - last 24 hr 05/27/23 09:49 Urine Opiates Screen NEGATIVE Urine Methadone Screen NEGATIVE Ur Barbiturates Screen NEGATIVE Ur Phencyclidine Scrn NEGATIVE Ur Amphetamines Screen NEGATIVE MDMA (Ecstasy) Screen NEGATIVE U Benzodiazepines Scrn NEGATIVE Urine Cocaine Screen NEGATIVE U Cannabinoids Screen NEGATIVE Ur Drug Screen Comment Ethyl Alcohol < 3.0 Management Discussion w/another healthcare provider: custodial maintenance worker/Case management Treatment and Re-Evaluation Narrative: Patient was given a dose of hydroxyzine here. custodial maintenance worker was in to evaluate the patient. She felt the patient could be discharged home with a safety plan. She arranged for follow-up with the counseling center early next week. She attempted to contact Dr. Celis's office to schedule an appointment for follow-up with gastroenterology. Patient was given a prescription for hydroxyzine. Patient was instructed to follow-up with the counseling center next week. Patient understood and was agreeable with the plan. All questions were answered. Discharge Plan Triage Chief Complaint: Anxiety ED Provider: Hardik Ponce Dx/Rx/DC Orders Clinical Impression: Anxiety, Depression Instructions: ED Anxiety Reaction, ED Depression Prescriptions: New hydroxyzine pamoate [hydroxyzine pamoate] 25 mg capsule 50 mg PO TID PRN PRN (Reason: Anxiety) Qty: 30 0RF No Action ParaGard T 380A 380 square mm intrauterine device 1 device intrauterine ONCE Rx Instructions: as a single dose multivitamin [One Daily Multivitamin] Tablet 1 tab PO DAILY magnesium oxide 500 mg capsule 500 mg PO DAILY sumatriptan succinate 100 mg tablet See Rx Instructions PO .COMPLEX Qty: 14 1RF Rx Instructions: take 1 tab at onset of headache; if no relief, may repeat 1 tab after at least 2 hrs; max = 2 tabs/24 hrs PO Primary Care Provider: Antoni Schneider NP Referrals: Brittaney Brito MD [Non-Staff] - As soon as possible Gualberto Horowitz MD [Non-Staff] - As soon as possible Antoni Schneider NP, VOCAL PERFORMER-C [Primary Care Provider] - Disposition Disposition: Home, Self Care
[2023-05-27] MEDS: hydrOXYzine PAM 25 MG Capsule PO (09:44)
--- NOTE | 2023-05-27 09:54 | ED.RN ---
Blood drawn and sent to lab.
[2023-05-27 10:37] LABS: Amphetamine Urine VISTA NEGATIVE (<1000 ng/mL); Barbiturate Urine VISTA NEGATIVE (< 200 ng/mL); Benzodiazepine Urine VISTA NEGATIVE (< 200 ng/mL); Cocaine Urine VISTA NEGATIVE (< 300 ng/mL); Ecstacy Urine VISTA NEGATIVE (< 500 ng/mL); Methadone Urine VISTA NEGATIVE (< 300 ng/mL); PCP Urine VISTA NEGATIVE (< 25 ng/mL); THC Urine VISTA NEGATIVE (< 50 ng/mL); Vista UDS pH Range 7
[2023-05-27 10:51] LABS: Alcohol, Blood (Medical)-Serum < 3.0 mg/dL
--- NOTE | 2023-05-27 11:52 | CM.ED ---
Social Work SW completed assessment and safety plan. With patient's verbal consent, SW additionally scheduled expedited intake appt for patient with the counseling center. Pt has intake for services Tuesday05/30/2023 at 11am at [facility]. Pt reports starting June 01 her insurance is cancelled and they are losing Medicaid. Pt is unsure if or what kind of insurance she will be able to obtain. [facility] has funding for patients without insurance and is most appropriate for services at this time. Pt has a PCP (Jennie) appointment Tuesday for follow up as well. Pt is also having difficulty making gastro appointment. SW called and had to leave a voicemail for Dr. Segura's office to try to get appointment. SW will contact patient if call back is received. Additional gastro options will also be explored for patient if unable to get in with Dr. segura. Pt was given copy of safety plan and additional appt. information and numbers. Stephie Zheng IT NETWORK ARCHITECT, MOLD YARD SUPERVISOR
[2023-05-27 12:22] VITALS: BP 120/63; PULSE 84; O2SAT 95
--- NOTE | 2023-05-27 12:51 | CM.ED ---
Social Work Psychiatric Assessment Reason for consult: Mental Health Informant(s): Patient, medical record Chief Complaint: Anxiety Marital/Social History/Living Situation: Patient is a 27-year-old female that resides with her spouse and 2 children. Pt has a 2-year-old and a 3-year-old. Patient moved to [place] 2 years ago from [place] with her spouse. Pt?s in-laws are from this area and pt?s found a job in [place]. Pt?s spouse and in-laws are of the [place] community. Pt reports fidel being important to her. History: None Education and Employment History: Bachelor?s degree in Psych/criminal justice. 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 Mental Health Treatment/History: Pt has a history of depression/PPD and anxiety. Patient denies any suicide attempts or psychiatric placements. Pt reports being on Lexapro in the past and struggling significantly 2 years ago with a [id number] and being while moving to [place].? Pt had PPD/anxiety. Pt denies any other known diagnoses and is not currently taking any mental health medications. Substance Abuse Hx: Denies Abuse Issues/Trauma HX: Denies Risk to Self/Others: Pt has current SI without a plan or intent. Pt has no past attempts. Pt has thoughts of not wanting to be here, not knowing the point, and feeling like a burden. Triggers/Stressors/Risk factors: Pt is losing Medicaid insurance starting June 01, gastric concerns with inability to get into a insurance writer, ?living away from her family in [place]/lack of support Coping Skills: breathing techniques, walking, praying Support/Resources: spouse, siblings and in-laws Mental Status Exam: ?Pt is oriented x4 with good memory Appearance/General Behavior/Mood/Affect: Pt presents as tearful with low mood and affect is congruent to mood. Communication Pattern/Thought process: Pt communicates effectively. Pt does not present with delusions, paranoia or AVH. General Intellectual Functioning:?? Average to above average Judgment/Insight: Pt presents with good judgment and insight Assessment: Patient presents at ED due to anxiety. Pt has also been to the ED recently for abdominal pain. Pt reports severe anxiety with difficulty sleeping, eating, and breathing. Pt reports shaking, chest pain, and nausea with anxiety/panic attacks. Additionally, patient has been trying to get into a insurance writer due to abdominal concerns and has been unable to get into anyone due to them not accepting new patients. Pt?s insurance is discontinued starting June with Medicaid due to not meeting income guidelines. Pt and spouse are losing Medicaid but patient?s 2 and 3-year-old children still qualify. Patient reports she had a gastric sleeve procedure in [facility] and regrets this decision due to gastric symptoms and being unable to find physician now. Pt reports she is unsure if some concerns are related to this procedure or anxiety. Pt also reports a thyroid disorder in the past. Pt denies any substance abuse concerns. Pt reports not wanting ?to live like this? and additional passive suicidal thoughts but denies any plans or intent. Pt presents as distressed with her current state of mind. Pt reports feeling completely alone and having very little support in [place]. Pt reports her family is in [place] and she has 3 siblings she is very close with. Pt has been staying home with her children for two years? Pt reports she has not felt this bad since she had PPD/Anxiety when she moved here two years ago. Pt reports Lexapro taken in the past and it was helpful. Pt does not currently have a psychiatrist or counselor but saw Bren Mcelroy in the but she currently has a 6 month waitlist and patient does not believe she can afford services. Pt received dose of hydroxyzine in the ED and found it helpful for her anxiety. Pt has an appointment schedule Tuesday with PCPJennie. Pt agreeable to SW facilitating appointments if able. Pt agreed to an intake appt. at [facility] on Wednesday 05/30 at 11am. EDILMA also left voicemail with Dr. Celis?s office to try to facilitate services with gastro physician. SW collaborated with Dr. Ponce who is in agreement with safety plan and establishing outpatient services. ED physician also trying to find other gastro options for patient and providing script for hydroxyzine for patient until she is established with a provider. Plan:. D/C home on safety plan and follow up with [facility] Tuesday and PCP Tuesday. SW will call if Dr. Celis?s office returns call. Stephie Zheng BIODIESEL PLANT SUPERINTENDENT, IT COMPLIANCE MANAGER
== END 2023-05-27 12:24 | disposition home or self-care (01) ==
PROVIDERS: Emergency Provider Emergency Medicine; PCP Nurse Practitioner Family; Visit Provider Emergency Medicine
DX: F41.9 Anxiety disorder, unspecified (principal); F32.A Depression, unspecified
CPT/HCPCS: 80307; 82077; 99282

== ENCOUNTER → 2023-09-28 | Outpatient (CLI) | payer MEDICAID, SELFPAY ==
--- NOTE | 2023-09-28 10:19 | US_ITS ---
STUDY: ABDOMINAL ULTRASOUND - RIGHT UPPER QUADRANT REASON FOR VISIT: Female, 28 years old EPIGASTRIC PAIN -- worse after eating TECHNIQUE: Ultrasound evaluation of the right upper quadrant was performed with real-time and static logan-scale imaging. TECHNICAL QUALITY: Adequate. COMPARISON: None. FINDINGS: Liver: The liver measures 15.7 cm. There is increased echogenicity consistent with fatty infiltration. The bile ducts are within normal limits. There is hepatic color flow. The direction of portal flow is hepatopetal. There is no demonstrated mass lesion. Gallbladder: Normal distended gallbladder. The gallbladder wall measures 1.5 mm. There is a negative sonographic Wright''s sign. There is no pericholecystic fluid. There are multiple echogenic structures within the gallbladder, consistent with multiple gallstones. Sludge is seen in the gallbladder lumen. Common Bile Duct (C.B.D.): The common bile duct measures 2.4 mm. Pancreas: Normal size of the head, body and tail of the pancreas. There is normal echogenicity of the pancreas. There is no demonstrated pancreatic mass or cyst. Right Kidney: Normal size of the right kidney. The right kidney measures 11.2 cm x 4.3 cm x 3.4 cm. Normal renal cortex. The right cortex measures 1.1 cm. There is no demonstrated renal mass or cyst. There is no right hydronephrosis. US/Abdomen Limited IMPRESSION: Fatty attrition of the liver. Multiple gallstones and sludge in the gallbladder lumen. Electronically Signed: Julian Mccormack MD at 15:28 EST ,
--- OUTSIDE RECORDS SUMMARY | 2023-09-28 19:32 | XMS RPT_ITS | CCD ---
Author Name Unknown Address [address] [place] [address] Organization [facility] Care Team Providers Care Collar Padder Blindstitch Name Role Phone HANG ESPINOZA DO Attending Unavailable Results Test Name Value Interpretation Reference Range Facil ity Encounters Encounter Date Encounter Type Care Provider Facility Start: 05-24-2023 End: 05-25-2023 ambulatory HANG ESPINOZA DO Facility:[facility] Payers Date Payer Category Payer Unknown [id number] Unknown Summary Purpose Family History No Family History Records Found Advance Directives No Advanced Directives Records Found Additional Source Comments INFORMATION SOURCE (unrecogn ized section and content) FOR RECORDS PERTAINING TO PATIENTS WHO ARE OR HAVE BEEN ENROLLED IN A CHEMICAL DEPENDENCY/SUBSTANCEABUSE PROGRAM, SOME INFORMATION MAY BE OMITTED. This clinical summary was aggregated from multiple sources. Caution should be exercised in using it in the provision of clinical care. This summary normalizes information from multiple sources, and as a consequence, information in this document may materially change the coding, format and clinical context of patient data. In addition, data may be omitted in some cases. CLINICAL DECISIONS SHOULD BE BASED ON THE PRIMARY CLINICAL RECORDS. [facility] [facility]. provides no warranty or guarantee of the accuracy or completeness of information in this document.
== END | disposition home or self-care (01) ==
LOC: US 10:17
PROVIDERS: PCP Nurse Practitioner Family
DX: R10.13 Epigastric pain (principal)
CPT/HCPCS: 76705

== ENCOUNTER → 2023-12-19 | Outpatient (CLI) | payer MEDICAID, SELFPAY ==
--- NOTE | 2023-12-19 15:15 | US_ITS ---
INDICATION: check IUD placement EXAMINATION: Ultrasound US Pelvis Non OB Complete With Transvaginal Imaging TECHNIQUE: Transabdominal and transvaginal pelvic ultrasound was performed. Grayscale, spectral waveform, and color flow Doppler evaluation of the adnexa. COMPARISON: FINDINGS: UTERUS: Retroflexed. The uterus measures 6.9 x 4.1 x 3.8 cm. There is no uterine mass. The endometrial stripe measures 6.1 mm in AP diameter with slight heterogeneity. An IUD is noted in place. RIGHT OVARY: 2.5 x 2.2 x 1.4 cm. Non-enlarged, normal echogenicity. There is normal arterial inflow and venous outflow present in the right ovary. LEFT OVARY: 2.1 x 1.6 x 1.3 cm. Non-enlarged, normal echogenicity. There is normal arterial inflow and venous outflow present in the left ovary. FREE FLUID: Mild. US/Pelvic w/ Transvaginal IMPRESSION: IUD is noted at the fundal region. Mild pelvic free fluid. Electronically Signed: Delio Angel DO at 16:12 EDT Reading Location ID and State: [facility] / [place] Tel [phone], Service support ,
== END | disposition home or self-care (01) ==
LOC: US 15:14
PROVIDERS: PCP Nurse Practitioner Family; Referring Provider Nurse Practitioner Women's Health; Visit Provider Nurse Practitioner Women's Health
DX: N93.9 Abnormal uterine and vaginal bleeding, unspecified (principal); Z97.5 Presence of (intrauterine) contraceptive device
CPT/HCPCS: 76830; 76856

== ENCOUNTER 2024-01-02 11:05 | Day surgery (SDC) | payer MEDICAID, SELFPAY ==
--- NOTE | 2023-12-22 12:14 | EKG12_ITS ---
Test Reason : PREOP Blood Pressure : / mmHG Vent. Rate : 062 BPM Atrial Rate : 062 BPM P-R Int : 150 ms QRS Dur : 080 ms QT Int : 396 ms P-R-T Axes : 000 058 038 degrees QTc Int : 401 ms Normal sinus rhythm Normal ECG Confirmed by Vince Hahn ([id number]), story editor MATI DELCID ([id number]) on 12/23/2023 8:47:59 AM Referred By: Brielle Mtz Confirmed By:Vince Hahn
[2023-12-22 13:30] LABS: Internal QC Validated? YES +Cl - CLEAR BKGD; Pregnancy, Urine Negative Negative; Record Kit Lot#,Urine Preg 718089
[2023-12-22 14:12] LABS: Thyroid Stim Hormone (TSH) 3.45 uIU/mL (0.358-3.74)
[2023-12-22 14:46] LABS: AST(SGOT) 14 U/L (15-37); Alanine Aminotransfer ALT/SGPT 16 U/L (13-56); Albumin, Serum 3.7 g/dL (3.2-5.0); Alkaline Phosphatase 73 U/L (45-117); Bilirubin, Direct 0.12 mg/dL (0.00-0.30); Globulin 3.4 g/dL (2.2-4.2); Protein, Total 7.1 g/dL (6.4-8.2)
[2024-01-02] VITALS (10 sets, daily range): BP systolic 93–114; BP diastolic 53–78; PULSE 62–84; RESP 14–16; TEMP 36.1–37; O2SAT 92–100; BMI 25.4
[2024-01-02 11:28] LABS: Internal QC Validated? YES +Cl - CLEAR BKGD; Pregnancy, Urine Negative Negative
--- NOTE | 2024-01-02 11:30 | HP.PCM_ITS ---
History and Physical Date of Admission: 01/02/24 Date of Service: 12/20/23 MR#: [id number] Acct: [id number] Name: JUDY BEARD Rep #: [id number] : 1995 Provider: Dr. Brielle Mtz MD Age/Sex: 28/F Location: [facility] Status: Signed Intake Vital Signs 05/27/2309:06 12/20/2407:39 Height 5 ft 2 in 5 ft 2 in Weight: 140 lb 6 oz BMI 25.7 BP 98/65 Blood Pressure Location Rt brachial Position Sitting Respiration 18 Pulse 71 Pulse Source Monitor Temp 97.4 F L Temp Source Temporal Pulse Oximetry (%) 100 Oxygen Delivery Method room air Intake Visit Reasons: GALLBLADDER Chief Complaint: Gallstones Office Manager Required: No Is patient in pain?: No Allergies No Known Allergies Allergy (Verified 12/20/23 08:40) Medications ?Medication ?Instructions ?Recorded ?Confirmed ?Type copper 380 square mm intrauterine 1 device intrauterine ONCE 12/16/21 12/20/23 History device (ParaGard T 380A) multivitamin (One Daily 1 tab PO DAILY 12/01/22 12/20/23 History Multivitamin tablet) sumatriptan succinate 100 mg tablet See Rx Instructions PO .COMPLEX 01/18/23 12/20/23 Rx #14 tabs magnesium oxide 500 mg capsule 500 mg PO DAILY 03/22/23 12/20/23 History hydroxyzine pamoate 25 mg capsule 50 mg (2 x 25 mg) PO TID PRN PRN 05/27/23 12/20/23 Rx Anxiety #30 CAPSULES PFSH Medical History (Updated 12/20/23 @ 08:[address] Brielle Mtz MD) Gallstones Depression Migraine Hypothyroidism Anxiety Abnormal uterine bleeding Skin lesion Urinary tract infection with hematuria Thyroid disease Anemia Generalized anxiety disorder Major depressive disorder, recurrent, severe w/o psychotic behavior History of depression Hypothyroidism Vitamin deficiency Surgical History (Updated 12/20/23 @ 08:[address] Brielle Mtz MD) H/O gastric sleeve S/P appendectomy Family History Other Cancer Hypertension Melanoma Social History household members: spouse and children number of children: 2 current occupation: [employer] pets and animals: Yes (2) pets and animals: cat(s) Smoking Status: Never smoker alcohol intake: current alcohol intake frequency: holidays/special occasions only substance use type: does not use what type of physical activity do you participate in: walking and weight training frequency: 3-4 times per week seatbelt use: always do you feel safe at home: Yes additional social history: - Jose E HPI HPI HPI: 28-year-old female presents due to right upper quadrant pain nausea and vomiting and diarrhea after eating. Patient states last that this has been going on since early this year. Patient did have an EGD done at [facility] in [place] was given Protonix 40 mg p.o. daily at that time patient only takes it occasionally. Patient does have past surgical history for gastric sleeve done in [place] in 2022. patient have weight loss from 215 pounds to 140 pounds. Patient states about 30 minutes to an hour after eating she will have right upper quadrant pain that can also go across to her epigastrium also to her back into her right shoulder typically after eating fatty or greasy foods and she will also have some diarrhea. Patient states last time this happened was about 2 weeks ago she has been trying to avoid fatty greasy foods. She states she does have occasional like a dull ache underneath her ribs right upper quadrant epigastrium and some nausea on occasion before she eats. ROS General General: Yes weight change; No appetite, fatigue, colon cancer or breast cancer HEENT HEENT: No difficulty swallowing, eye injury, eye surgery, swollen glands or hoarseness Endo Endocrine: No thyroid disease, diabetes mellitus, thyroid cancer, Hair loss, heat intolerance or cold intolerance Skin Skin: No rash or changing moles Musc Musculoskeletal: No back problems, arthritis, rheumatoid arthritis, gout or joint pain Cardio Cardiovascular: No murmur, pacemaker, heart disease, atrial fibrillation, high blood pressure, heart attack, heart stent, palpitations, shortness of breat with exertion or chest pain Psych Psychiatric: Yes depression and anxiety; No hearing voices Resp Respiratory: No shortness of breath, No sleep apnea, No cough, No COPD, No asthma, No emphysema and No wheezing Gastro Gastrointestinal: Yes abdominal pain, No nausea or vomiting, Yes diarrhea, Yes constipation, No blood in stool, Yes acid reflux, Yes hemorrhoids, No ulcers, Yes gallbladder problem and No black,tarry stools Tommy Hematologic: No blood thinners, No blood disorders, No bleeding, No anemia and No blood clots Neuro Neurologic: No numbness and No tingling Exam Const General: cooperative, healthy appearing, comfortable and no acute distress [facility] Head: normocephalic and atraumatic Neck Neck: supple Resp Effort & Inspection: normal respiratory effort Cardio Rate: regular rate GI Inspection: non-distended Palpation: soft, no hernias and nontender Skin General: no rashes or lesions noted Neuro General: CN's II-XI intact bilaterally Extrem General: normal to inspection Psych Mental Status: mental status grossly normal Attitude: cooperative Assessment and Plan Assessment and Plan (1) Cholelithiasis: Status: Acute (2) Gastroesophageal reflux disease: Status: Inactive Orders: Orders Liver Profile Today K80.20 - Calculus of gallbladder without cholecystitis without obstruction Plan Will plan to check LFTs patient not had any recent blood work. Encourage patient to continue her Protonix daily as it does not work do not take it daily and that she likely does have some element of reflux as she was told to take this after she had her endoscopy done-trying to get the report.. Reviewed the anatomy with the patient and discussed the procedure: laparoscopic cholecystectomy with possible cholangiograms, possible open. Review risks including but not limited to bleeding, infection, hernia, bile leak, retained gallstones requiring another procedure ERCP- Endoscopic Retrograde Cholangiopancreatography, injury to another organ (bile ducts, common bile duct, small bowel, etc.) and conversion to an open procedure. All questions were answered. Brielle Mtz M.D. Pager: [phone] [facility] [address] [place] [address], [address] [place] [address] Office: [phone] Coding Level of Care Code Off vis,new,level 3 Diagnoses Cholelithiasis K80.20 Gastroesophageal reflux disease K21.9 12/20/23 1313 <Electronically signed by Brielle Mtz MD> Date Brielle Mtz MD
[2024-01-02] MEDS: Lactated Ringers 1,000 ML 15 ML IV ×2 (11:42→13:57)
--- NOTE | 2024-01-02 11:50 | RAD_ITS ---
STUDY: INTRAOPERATIVE CHOLANGIOGRAM. REASON FOR EXAM: Female, 28 years old. LAP DEEPALI WITH IOC FLUOROSCOPY TIME (if supplied): ( 14.1 seconds ) minutes/seconds. 3.56 mGy.. TECHNIQUE: An intraoperative cholangiogram was performed by the surgeon. Fluoroscopic services provided. COMPARISON: None. FINDINGS: The common bile duct is not dilated. No intraluminal filling defect is seen. There is free flow of contrast into the duodenum. The intrahepatic biliary ducts are unremarkable. RAD/Cholangiogram/ O R,Initial IMPRESSION: Unremarkable intraoperative cholangiogram. Electronically Signed: Julian Mccormack MD at 13:41 EDT ,
[2024-01-02] MEDS: Cefazolin 2 GM in 0.9% Normal Saline (100mL Bag) 100 ML IV (12:15)
--- NOTE | 2024-01-02 12:50 | GALL_PTH ---
PATIENT: JUDY BEARD [place] [facility] [place][id number] AGE/SX: 28/F ROOM: RE01/02/[address]: Dr. Brielle Mtz MD : 1995 BED: DIS: 01/02/2024 SPEC #: [id number] RECD: 01/02/24 17:51 STATUS: ADELA REShane #: [id number] SLADE: 01/02/24 12:[address]: Brielle Mtz DEPT: SURGICAL PATHOLOGY RECD BY: Elba Aggarwal ENTERED: 01/03/24 07:48 SP TYPE: HARMONY CARMONA DR: Antoni Schneider, MAVIS Tissues: Gallbladder, NOS Procedures: Surgery Specimen Level III HEADER OPERATION: Laparoscopic, cholecystectomy with IOC PRE-OP DIAGNOSIS: Cholelithiasis TISSUE SUBMITTED: Gallbladder and contents MICROSCOPIC DIAGNOSIS Gallbladder and contents, cholecystectomy: Mild chronic cholecystitis and cholelithiasis. SJ/mr 01/04/2024 MICROSCOPIC DESCRIPTION Slides are reviewed. GROSS DESCRIPTION Received is one container labeled with the patient's name and designated gallbladder and contents. The specimen consists of a gallbladder measuring 8.5 cm in length and up to 3.4 cm in diameter. The external surface is pink-silvestre, smooth and glistening for the most part. Focally it is granular, hemorrhagic and contains cautery artifact. The gallbladder contains green-yellow mucoid bile and multiple orange -brown stones measuring in aggregate 1.0 x 1.0 x 0.2 cm and <0.1 to 0.2cm in greatest dimension. The mucosa is bile-stained and without any mass lesions. The gallbladder wall measures up to 0.1 cm in thickness. Maintenance Mechanic Millwright sections from the gallbladder and the cystic duct are submitted in one cassette. / SJ: 01/03/2024 TC:3 CPT: 84495
[2024-01-02] MEDS: Bupivacaine Mpf 0.5% 30 ML VIAL (13:04)
--- NOTE | 2024-01-02 13:07 | OP.PCM_ITS ---
Report of Operation Date of Procedure: 01/02/24 Pre-Operative Diagnosis: Cholelithiasis Post-Operative Diagnosis: Same Surgery/Procedure Performed:: Laparoscopic cholecystectomy with cholangiograms Surgeon: Brielle Mtz chief of service: [place] Type of Anesthesia: General/Supplemental Anesthesiologist: Oliver Becker Special Medications: Ancef 2 g IV x 1 Specimen's removed: Gallbladder Estimated Blood Loss (mL): <10 cc Description of Procedure: Indications: this is a 28 year-old female who developed abdominal pain/nausea/vomiting and on workup was found to have cholelithiasis, with a normal common bile duct. Laparoscopic cholecystectomy was elected. Description procedure: The patient was placed on operating table in supine position. A timeout was completed verifying correct patient, procedure, site, position and special equipment prior to beginning procedure. General Anesthesia was induced. The abdomen was prepped and draped in usual sterile fashion. An incision was made in the natural skin line above the umbilicus. The fascia was elevated and incised. The peritoneum was elevated and incised. Entry into the peritoneum was confirmed visually and no bowel was noted in the vicinity of the incision. Baltazar trocar was placed. The abdomen was insufflated with carbon dioxide to a pressure of 12-15 mmHg. Patient tolerated insufflation well. The laparoscope was then inserted and abdomen inspected. No injuries from initial trocar placement were noted. Additional trochars were then inserted in the following locations 5 mm trocar in the epigastrium and 2 more 5 mm trochars along the right costal margin. The abdomen was inspected no abnormalities were found. The table is placed in reverse Trendelenburg position with the right side up. The dome of the gallbladder was grasped with atraumatic grasper passed through the lateral port and retracted over the dome of the liver. Infundibulum was then grasped with atraumatic grasper through the midclavicular port and retracted to the right lower quadrant. This maneuver exposed Calot's triangle. The peritoneum overlying the gallbladder infundibulum was then incised and cystic duct and artery identified and circumferentially dissected. Mann catheter was used for cholangiograms. The cholangiogram showed good filling of the common bile duct into the duodenum with no filling defects, good filling of the right and left bile ducts as well. The cystic duct and artery were then doubly clipped and divided close to the gallbladder. The gallbladder then dissected from its peritoneal attachments by electrocautery. Hemostasis was checked and the gallbladder and contained stones were removed using the endoscopic retrieval bag through the umbilical port. The gallbladder is passed off table as specimen. The gallbladder fossa was irrigated with saline and hemostasis obtained. There is no evidence of bleeding from the gallbladder fossa or cystic artery leakage of bile from the cystic duct stump. Secondary trochars removed under direct vision. No bleeding was noted the trocar sites. The laparoscope was withdrawn and umbilical trocar removed. The abdomen was allowed to collapse. The fascia of the 12 mm trocar was closed with a [id number] 0 Vicryl suture. The skin was closed with sutures of 4-0 Monocryl and Steri-Strips. The patient was extubated. The patient tolerated procedure well and was taken to the postanesthesia care unit in stable condition. Complications none
--- NOTE | 2024-01-02 13:09 | EX.PCM.DISCH ---
Discharge Instructions Diet Discharge Diet: Light diet - advance as tolerated Activity Discharge Activity: May Not Drive (while taking narcotic pain medications.) May shower in (days): 1 Lifting Restrictions: no lifting >20 lbs x 2 wks, no strenuous exercise for 4 wks Dressing / Incision Call your doctor if your incision/area has: Continuous Slow Oozing, Sudden Increased Bleeding, Increased Pain/ Swelling, Increased Redness, Foul Smelling Discharge and Swelling at the incision site Call your doctor if you observe: Fever of 101 or Higher Remove Dressing in: 2 days Cleanse incision/area with: Soap & Water Additional Dressing/Incision Instructions:: Steri-Strips will fall off in 7 to 10 days, if they do not fall off okay to remove after 10 days. Follow Up Care Please Follow Up With: Brielle Mtz MD When: Call the office for a follow-up appointment 2 weeks; after 5 PM and on the weekends call [phone] with any concerns. Test Results: Test results from this visit will be discussed in further detail at your follow-up appointment, if applicable. Discharge Plan Admission Attending Provider: Brielle Mtz Primary Care Provider: Antoni Schneider Instructions Print Language: [place] Citizen Discharge Orders/Prescriptions Prescriptions: New oxycodone 5 mg tablet 5 mg PO Q6H PRN (Reason: pain) 3 Days Qty: 14 0RF Continued ParaGard T 380A 380 square mm intrauterine device 1 device intrauterine ONCE Rx Instructions: as a single dose pantoprazole 40 mg tablet,delayed release (DR/EC) 40 mg PO DAILY escitalopram oxalate 20 mg tablet 10 mg PO DAILY sumatriptan succinate 100 mg tablet See Rx Instructions PO .COMPLEX Qty: 14 1RF Rx Instructions: take 1 tab at onset of headache; if no relief, may repeat 1 tab after at least 2 hrs; max = 2 tabs/24 hrs PO Other Ambulatory Orders: 12 Lead EKG (Routine) Timeframe: 20231222 Location: None Selected Ordered By: Dr. Hardik Santamaria Referrals / Follow Up: Antoni Schneider, TRAVELING IN[employer]ORY ASSOCIATE-C [Primary Care Provider] - Disposition Disposition (needs filled in before D/C Order can be placed): Home, Self Care
[2024-01-02] MEDS: oxyCODONE 5 MG Tablet PO (15:09)
== END 2024-01-02 16:26 | disposition home or self-care (01) ==
LOC: SDC 11:06 → AC 11:07
PROVIDERS: Anesthesiology; PCP Nurse Practitioner Family; Referring Provider Surgery; Visit Provider Surgery
PROC: (CPT 47610; principal; 2024-01-02 12:35)
DX: K80.10 Calculus of gallbladder with chronic cholecystitis without obstruction (principal); K21.9 Gastro-esophageal reflux disease without esophagitis; Z79.899 Other long term (current) drug therapy
CPT/HCPCS: 47562; 36415; 74300; 76000; 80076; 81025; 84443; 88304; 93005; J7120; J2405